=== PATIENT | male | born 2000 | race Caucasian/White ===

== ENCOUNTER 2019-12-01 22:25 | Emergency (ER) | payer BC ==
[2019-12-01] MEDS ORDERED: Lidocaine 1% with EPINEPHrine 1:100,000 20 ML MDV INJECT ONE (22:32)
[2019-12-01] MEDS ORDERED: Bacitracin/Neomycin/Polymyxin B Oint 0.9 GM U/D Packet ONE (23:00)
--- NOTE | 2019-12-01 23:02 | EDM.PDOC ---
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 He struck his head on the corner of a feeder bin. He denies any loss of consciousness. No headache. No nausea or vomiting. No visual complaints. No numbness tingling complaints or neck pain. Onset: Today Onset Date: 12/01/19 Onset Time: 21:30 Location: Reports: Head (Posterior scalp) Severity: Mild Improves with: Reports: None Worsens with: Reports: None Associated Symptoms: Reports: No Other Symptoms occipital head Pain Score (Numeric/FACES): 2 - Related Data Allergies Allergy/AdvReac Type Severity Reaction Status Date / Time No Known Allergies Allergy Verified 12/01/19 22:37 Home Meds: Home Meds . [No Known Home Meds] 12/01/19 [History] ED ROS GENERAL - Review of Systems Review Of Systems: Comprehensive ROS is negative, except as noted in HPI. ED EXAM, SKIN/RASH Exam: See Below Exam Limited By: No Limitations General Appearance: Alert, WD/WN, No Apparent Distress Eye Exam: Bilateral Eye: EOMI, PERRL Ears: Hearing Grossly Normal, Normal TMs Nose: Normal Inspection Throat/Mouth: Normal Inspection, Normal Voice Head: Other (Occipital scalp laceration irregular) Neck: Normal Inspection, Supple Respiratory/Chest: No Respiratory Distress Back Exam: Normal Inspection, Full Range of Motion Extremities: Normal Inspection, Normal Range of Motion Neurological: Alert, Oriented, Normal Cognition, Normal Gait, No Motor/Sensory Deficits Psychiatric: Normal Affect, Normal Mood Skin: Warm, Wound/Incision (Occipital) Location, Skin: Head ED SKIN PROCEDURES - Laceration/Wound Repair Occipital Head Appearance: Irregular, Mildly Contaminated Anesthetic Type: Local Local Anesthesia - Lidocaine (Xylocaine): 1% with EPI Local Anesthetic Volume: Other (8 mL) Skin Prep: Saline Exploration/Debridement/Repair: Wound Explored, In a Bloodless Field Closed with: Whit Lac/Wound length In cm: 2.0 Course - Vital Signs Last Recorded V/S: Last Vital Signs Temp 97.4 F 12/01/19 22:25 Pulse 85 12/01/19 22:25 Resp 16 12/01/19 22:25 BP 122/60 12/01/19 22:25 Pulse Ox 96 12/01/19 22:25 - Orders/Labs/Meds Meds: Medications Discontinued Medications Generic Name Dose Route Start Last Admin Trade Name Lisa PRN Reason Stop Dose Admin Lidocaine/Epinephrine 20 ml 12/01/19 22:32 Xylocaine 1% With Epinephrine 1:100,000 INJECT 12/01/19 22:33 ONETIME ONE Departure - Departure Time of Disposition: 23:03 Disposition: Home, Self-Care 01 Condition: Good Clinical Impression: Laceration of occipital scalp Qualifiers: Encounter type: initial encounter Qualified Code(s): S01.01XA - Laceration without foreign body of scalp, initial encounter - Discharge Information Instructions: Wound Care, Adult, Sutures, [place], or Adhesive Wound Closure Sepsis Event Note (ED) - Evaluation Sepsis Screening Result: No Definite Risk - Focused Exam Vital Signs: Vital Signs Temp Pulse Resp BP Pulse Ox 12/01/19 22:25 97.4 F 85 16 122/60 96 - Assessment/Plan Assessment:: Scalp laceration occipital Plan: 1. Staple removal in 5-7 days. 2. Area clean and dry. 3. He may shower but do not scrub the area where the laceration is. 4. Apply triple antibiotic to the wound for the next 3 days. 5. Patient will check on his tetanus update at the time of staple removal. Patient thinks it's current. 6. Return to the ER if any altered level of consciousness occurs in the next 24 hours.
[2019-12-01] MEDS ORDERED: Bacitracin/Neomycin/Polymyxin B Oint 0.9 GM U/D Packet TOP ONE (23:07)
== END 2019-12-01 23:15 | disposition home or self-care (01) ==
LOC: KA.ED 22:25
DX: S01.01XA Laceration without foreign body of scalp, initial encounter (principal); W22.8XXA Striking against or struck by other objects, initial encounter
CPT/HCPCS: 12001; 99282

== ENCOUNTER 2023-03-06 10:48 | Emergency (ER) | payer BC ==
[2023-03-06] MEDS ORDERED: Lidocaine 1% 20 ML MDV INJECT ONE (10:53)
== END 2023-03-06 11:39 | disposition home or self-care (01) ==
LOC: KA.ED 10:48
DX: S01.511A Laceration without foreign body of lip, initial encounter (principal); W20.8XXA Other cause of strike by thrown, projected or falling object, initial encounter
CPT/HCPCS: 12013; 40650; 99282-25; 99283; J3490